=== PATIENT | female | born 1985 | race Caucasian/White ===

== ENCOUNTER → 2018-01-25 | Outpatient (REF) | payer OTHER | LOC: M SFHCLERA 18:48 | DX: R30.0 Dysuria (principal) ==

== ENCOUNTER → 2019-05-30 | Outpatient (CLI) | payer OTHER ==
--- NOTE | 2019-05-30 14:53 | REP ---
Chest x-ray: Two views. History: Cough. Findings: There are areas of consolidation bilaterally in the lower lobes consistent with pneumonia. Left lower lobe more extensive than right. Remaining lung jiménez are clear. Pleural angles are sharp. Heart is not enlarged. Impression: Bilateral lower lobe infiltrates consistent with pneumonia, left more extensively than right. Electronically Signed by Juan Brizuela MD 05/30/2019 02:45 P
== END ==
LOC: M LRY 14:19
PROVIDERS: ATTEND Physician Assistant
DX: R05 Cough (principal)
CPT/HCPCS: 71046; 81025; 87804; G0463